=== PATIENT | male | born 1945 | race Two or more races ===

== ENCOUNTER 2019-03-13 09:35 | Day surgery (SDC) | payer OTHER, MEDICAID ==
[~2019-03-13] VITALS: Ht 170.2 cm; Wt 80.5 kg
[2019-03-13] MEDS ORDERED: allopurinol (10:29)
[2019-03-13] MEDS ORDERED: SIMVASTATIN (10:29)
[2019-03-13] MEDS ORDERED: ASPIRIN (10:29)
[2019-03-13] MEDS ORDERED: ZOLPIDEM (10:29)
[2019-03-13] MEDS ORDERED: LISINOPRIL (10:29)
[2019-03-13] MEDS ORDERED: PANTOPRAZOLE (10:29)
[2019-03-13] MEDS ORDERED: FUROSEMIDE (10:29)
[2019-03-13] MEDS ORDERED: AMLODIPINE (10:29)
[2019-03-13 10:30] VITALS: Ht 170.2 cm; Wt 80.5 kg
[2019-03-13 10:59] VITALS: BP 109/69; PULSE 60; RESP 18
[2019-03-13] MEDS ORDERED: FENTAnyl 50 MCG/ML VIAL ONE (11:44)
[2019-03-13] MEDS ORDERED: MIDAZOLAM 1 MG/ML 2 ML INJ ONE ×2 (11:44)
[2019-03-13 11:45] VITALS: BP 87/52; PULSE 52; RESP 16
[2019-03-13 12:10] VITALS: BP 94/54; PULSE 55; RESP 16
== END 2019-03-13 14:31 | disposition home or self-care (01) ==
LOC: GIL 09:35
PROVIDERS: ATTEND Internal Medicine Gastroenterology
DX: R19.4 Change in bowel habit (principal); K64.4 Residual hemorrhoidal skin tags; K64.8 Other hemorrhoids
CPT/HCPCS: 45378; 88305; J2250; J3010